=== PATIENT | female | born 1940 | race Caucasian/White ===

== ENCOUNTER 2022-08-17 18:50 | Inpatient (IN) | payer MEDICARE ==
[2022-08-17] MEDS ORDERED: NALOXONE 0.4 MG/ML 1 ML VIAL IV PRN (19:18)
--- NOTE | 2022-08-17 19:18 | ED ---
General Adult HPI - General Chief complaint: Shortness of Breath Stated complaint: PE Time Seen by Provider: 08/17/22 18:57 Source: patient Mode of arrival: ambulatory Limitations: no limitations - History of Present Illness Initial comments: This is an 81-year-old female who was brought in by EMS as a transfer patient from [facility]. The patient stated that she had increasing shortness of breath over the last 3 or so weeks but stated that it became worse today so she went to the ER. The patient stated that she was to receive her confusion at the hospital however and was noted to be extremely short of breath so the nurse at the infusion center told her to report to the emergency department for evaluation workup. At the outside facility, workup was obtained and did show bilateral PEs without any right heart strain. The patient stated that she continued to remain mildly short of breath however denied any acute distress or pain currently. The patient remained stable. Review of Systems ROS Statement: Those systems with pertinent positive or pertinent negative responses have been documented in the HPI. ROS Other: All systems not noted in ROS Statement are negative. Past Medical History Smoking Status: Never smoker Past Alcohol Use History: None Reported Past Drug Use History: None Reported General Exam Limitations: no limitations General appearance: alert, in no apparent distress Head exam: Present: atraumatic, normocephalic Eye exam: Present: normal appearance, PERRL Pupils: Present: normal accommodation ENT exam: Present: normal exam, normal oropharynx, mucous membranes moist Neck exam: Present: normal inspection, full ROM Respiratory exam: Present: normal lung sounds bilaterally Cardiovascular Exam: Present: regular rate, normal rhythm, normal heart sounds GI/Abdominal exam: Present: soft, normal bowel sounds Extremities exam: Present: normal inspection, full ROM Back exam: Present: normal inspection, full ROM Neurological exam: Present: alert, oriented X3, CN II-XII intact Psychiatric exam: Present: normal affect, normal mood Skin exam: Present: warm, dry Course Vital Signs 08/17/22 19:04 Temperature 98.3 F Pulse Rate 77 Respiratory 16 Rate Blood Pressure 154/67 O2 Sat by Pulse 97 Oximetry Medical Decision Making - Medical Decision Making The patient was seen and evaluated emergency department. Physical exam, the patient was resting in bed without any acute distress. Vital signs admission were stable and within normal limits. The patient was currently on IV heparin for her bilateral PEs that were diagnosed the outside facility. The full workup was performed at the outside facility so no further workup was obtained here in the emergency department. The patient's primary care physician does not admit to this hospital therefore the patient was covered by [facility] on . Joyce Tejeda was contacted at [phone] and did accept the patient for admission. The patient was accepted to Dr. Thakur the patient was told this plan and was agreeable. The patient remained stable and was admitted in stable condition.. Disposition Clinical Impression: Bilateral pulmonary embolism Disposition: ADMITTED IP TO THIS [facility] Condition: Stable Is patient prescribed a controlled substance at d/c from ED?: No Referrals: Hi Quezada MD [Primary Care Provider] - 1-2 days Time of Disposition: 19:05 Decision to Admit Reason: Admit from EC Decision Date: 08/17/22 Decision Time: 19:05
[2022-08-17] MEDS ORDERED: HEPARIN SODIUM 1,000 UN/ML (10ML VL) IV ONE (20:47)
[2022-08-17] MEDS ORDERED: HEPARIN SOD,PORK IN 0.45% NACL 25,000 UNIT in 0.45% NACL 1 250ML.BAG IV SCH (21:00)
[2022-08-17 21:48] LABS: Basophils % (A) 0 %; Eosinophils # (A) 0.1 k/uL (0-0.7); Eosinophils % (A) 2 %; HCT 37.3 % (34.0-46.0); HGB 12.1 gm/dL (11.4-16.0); Hypochromasia Slight; Lymphocytes # (A) 0.9 k/uL (1.0-4.8); Lymphocytes % (A) 16 %; MCH 31.3 pg (25.0-35.0); MCHC 32.4 g/dL (31.0-37.0); MCV 96.5 fL (80.0-100.0); Mean Platelet Volume 8.3; Monocytes # (A) 0.3 k/uL (0-1.0); Monocytes % (A) 6 %; Neutrophils # (A) 4.1 k/uL (1.3-7.7); Neutrophils % (A) 74 %; Platelet Count 203 k/uL (150-450); RBC 3.86 m/uL (3.80-5.40); RDW 14.2 % (11.5-15.5); WBC 5.5 k/uL (3.8-10.6)
[2022-08-17 21:53] LABS: INR 0.9 (<1.2); Partial Thromboplastin Time 36.7 sec (22.0-30.0); Prothrombin Time 9.7 sec (9.0-12.0)
[2022-08-18 04:49] LABS: Basophils % (A) 0 %; Eosinophils # (A) 0.1 k/uL (0-0.7); Eosinophils % (A) 2 %; HCT 35.4 % (34.0-46.0); HGB 11.7 gm/dL (11.4-16.0); Hypochromasia Slight; Lymphocytes # (A) 0.8 k/uL (1.0-4.8); Lymphocytes % (A) 19 %; MCH 32.1 pg (25.0-35.0); MCHC 33.1 g/dL (31.0-37.0); MCV 96.7 fL (80.0-100.0); Mean Platelet Volume 8.2; Monocytes # (A) 0.3 k/uL (0-1.0); Monocytes % (A) 7 %; Neutrophils % (A) 69 %; Platelet Count 180 k/uL (150-450); RBC 3.66 m/uL (3.80-5.40); RDW 14.2 % (11.5-15.5); WBC 4.3 k/uL (3.8-10.6)
[2022-08-18 05:05] LABS: INR 0.9 (<1.2); Partial Thromboplastin Time 25.4 sec (22.0-30.0); Prothrombin Time 9.8 sec (9.0-12.0)
[2022-08-18] MEDS: HEPARIN SODIUM 1,000 UN/ML (10ML VL) IV PRN ×2 (05:16→10:14)
[2022-08-18 06:03] LABS: Glucose,Whole Blood 243 mg/dL (70-110)
[2022-08-18] MEDS ORDERED: DEXTROSE 50% SYRINGE 50 ML IVP PRN ×2 (06:15)
[2022-08-18] MEDS: INSULIN ASPART (NovoLOG) 100 UNIT/ML VIAL SQ SCH ×4 (06:27→20:16)
[2022-08-18] MEDS ORDERED: traMADol 50 MG TAB PO PRN (09:24)
[2022-08-18] MEDS ORDERED: LOPERAMIDE 2 MG CAP PO PRN (09:24)
[2022-08-18] MEDS ORDERED: ACETAMINOPHEN TAB 325 MG TAB PO PRN (09:24)
[2022-08-18] MEDS: SPIRONOLACTONE 25 MG TAB PO SCH (10:09)
[2022-08-18] MEDS: FUROSEMIDE 40 MG TAB PO SCH (10:09)
[2022-08-18] MEDS: hydrALAZINE HCL 50 MG TAB PO SCH ×2 (10:09→20:16)
[2022-08-18 10:30] LABS: Calcium 8.2 mg/dL (8.4-10.2); Magnesium 1.8 mg/dL (1.6-2.3); Potassium 4.8 mmol/L (3.5-5.1)
[2022-08-18 11:55] LABS: Glucose,Whole Blood 203 mg/dL (70-110)
[2022-08-18] MEDS ORDERED: APIXABAN 5 MG TAB PO SCH (12:15)
[2022-08-18] MEDS ORDERED: HEPARIN SODIUM 1,000 UN/ML (10ML VL) IV PRN (13:20)
--- NOTE | 2022-08-18 13:24 | XR ---
EXAMINATION TYPE: XR chest 2V DATE OF EXAM: 08/18/2022 1:05 PM COMPARISON: None TECHNIQUE: XR chest 2V Frontal and lateral views of the chest. CLINICAL INDICATION:Female, 81 years old with history of hypoxia; FINDINGS: Lungs/Pleura: There is no evidence of pleural effusion, focal consolidation, or pneumothorax. Senesc ent parenchymal changes. Pulmonary vascularity: Unremarkable. Heart/mediastinum: Cardiomediastinal silhouette is unremarkable. Musculoskeletal: Multiple level degenerative disc disease changes seen throughout the spine. IMPRESSION: No acute cardiopulmonary disease/process.
--- NOTE | 2022-08-18 14:03 | P.HPIM ---
History of Present Illness H&P Date: 08/18/22 This is an 81 year old female, history of diabetes mellitus, hypertension, gout. She is maintained on Krystexxa infusions states she was going to the hospital for her 9th infusion out of a 6 month course of therapy. She has reported chronic aches and pains since being started on infusions although her joint pain and swelling has improved. She states she has had ongoing issues with shortness of breath for the last 6 months and when she came in for her infusion she underwent work up for the shortness of breath at [facility]. CT angiography of the chest was performed showing Bilateral lobar segmental and subsegmental pulmonary emboli and large clot burden and RV/LV ratio is 1. The ma in pulmonary artery is abnormally dilated. Bilateral tree in bud opacities right greater than left likely due to an atypical pneumonia. She was found to have bilateral pulmonary embolism transferred to this facility for further evaluation of right heart strain. She reports no increase in leg swelling, denies lower extremity pain, no pain with ambulation. She denies prior history of blood clots, no personal or family history of clotting disorders. Denies personal history of cancer, there is family history of pancreatic cancer and some type of abdominal/bowel cancer. She does not wear oxygen at home and she is a non smoker. Denies history of heart disease or heart failure. Denies recent illness, has not been infected with covid previously. Up to date on vaccinations, records show patient had influenza vaccine this year, and moderna booster in April of this year. Patient was admitted to the hospital and started on IV heparin. Vascular services has been consulted, an echocardiogram and troponin have been ordered. Currently requiring 2L of oxygen via nasal cannula. REVIEW OF SYSTEMS: CONSTITUTIONAL: No fever, no malaise, no fatigue. HEENT: No recent visual problems or hearing problems. Denied any sore throat. CARDIOVASCULAR: No chest pain, orthopnea, PND, no palpitations, no syncope. PULMONARY: Reports shortness of breath worse with ambulation, no cough, no hemoptysis. GASTROINTESTINAL: No diarrhea, no nausea, no vomiting, no abdominal pain. NEUROLOGICAL: No headaches, no weakness, no numbness. HEMATOLOGICAL: Denies any bleeding or petechiae. GENITOURINARY: Denies any burning micturition, frequency, or urgency. MUSCULOSKELETAL/RHEUMATOLOGICAL: Denies any joint pain, swelling, or any muscle pain. ENDOCRINE: Denies any polyuria or polydipsia. The rest of the 14-point review of systems is negative. PHYSICAL EXAMINATION: GENERAL: The patient is alert and oriented x3, not in any acute distress. Well developed, well nourished. Appears fatigued on 2L nasal cannula. HEENT: Pupils are round and equally reacting to light. EOMI. No scleral icterus. No conjunctival pallor. Normocephalic, atraumatic. No pharyngeal erythema. No thyromegaly. CARDIOVASCULAR: S1 and S2 present. No murmurs, rubs, or gallops. PULMONARY: Chest is clear to auscultation, no wheezing or crackles. ABDOMEN: Soft, nontender, nondistended, normoactive bowel sounds. No palpable organomegaly. MUSCULOSKELETAL: No joint swelling or deformity. EXTREMITIES: No cyanosis, clubbing, or pedal edema. NEUROLOGICAL: Gross neurological examination did not reveal any focal deficits. SKIN: No rashes. Assessment and plan Assessment Acute bilateral lobar, sugmental and subsegmental pulmonary embolism. There is evidence of large clot burden and dilated main pulmonary artery found on CTA from [place]. Continues on IV heparin. Bilateral tree in bud opacities right greater than left possibly from an atypical pneumonia found on chest CT angiography. Hypertension Diabetes mellitus with hyperglycemia History of gout on Krystexxa infusions Never smoker Obesity GI prophylaxis DVT prophylaxis on IV heparin, high intensity Full Code Plan Continue IV heparin Vascular services has been consulted with further evaluation Echocardiogram ordered, and troponin ordered Venous doppler ordered Further recommendings pending Continue on oxygen support Repeat labs in AM The impression and plan of care has been dictated by Jaci Geronimo Nurse Practitioner as directed. Dr. Ofe MD I have performed a history and physical examination and medical decision making of this patient, discussed the same with the dictator, and agree with the dictators assessment and plan as written, documented as a scribe. Based on total visit time, I have performed more than 50% of this visit. Past Medical History Past Medical History: Diabetes Mellitus, Hypertension Additional Past Medical History / Comment(s): Gout: receiving Krystexxa Infusions q14 days History of Any Multi-Drug Resistant Organisms: None Reported Past Surgical History: Cholecystectomy, Hysterectomy, Orthopedic Surgery Additional Past Surgical History / Comment(s): surgery on foot "years ago" Past Anesthesia/Blood Transfusion Reactions: No Reported Reaction Additional Past Anesthesia/Blood Transfusion Reaction / Comment(s): never received blood tranfusion Past Psychological History: No Psychological Hx Reported Smoking Status: Never smoker Past Alcohol Use History: None Reported Past Drug Use History: None Reported - Past Family History Mother Family Medical History: Cancer Additional Family Medical History / Comment(s): pancreatic cancer Son(s) Family Medical History: Cancer Additional Family Medical History / Comment(s): brain cancer Medications and Allergies Home Medications Medication Instructions Recorded Confirmed Type Acetaminophen [Tylenol 8 Hour] 650 mg PO Q8H PRN 08/17/22 08/17/22 History Colchicine [Mitigare] 0.6 mg PO DAILY 08/17/22 08/17/22 History Cyanocobalamin (Vitamin B-12) 1,000 mcg PO DAILY 08/17/22 08/17/22 History [Vitamin B-12] Diclofenac Sodium Gel [Voltaren 2 - 4 gm TOPICAL QID PRN 08/17/22 08/17/22 History Gel] Folic Acid 1 mg PO DAILY 08/17/22 08/17/22 History Furosemide [Lasix] 40 mg PO DAILY 08/17/22 08/17/22 History Krystexxa Infusion 1 dose IV Q14D 08/17/22 08/17/22 History Levothyroxine Sodium [Synthroid] 50 mcg PO DAILY 08/17/22 08/17/22 History Loperamide HCl [Imodium A-D] 2 mg PO QID PRN 08/17/22 08/17/22 History Magnesium Oxide [Mag-Ox] 250 mg PO BID 08/17/22 08/17/22 History Metoprolol Tartrate [Lopressor] 50 mg PO BID 08/17/22 08/17/22 History Potassium Chloride [Klor-Con M20] 20 meq PO DAILY 08/17/22 08/17/22 History Spironolactone [Aldactone] 25 mg PO DAILY 08/17/22 08/17/22 History diphenhydrAMINE [Benadryl] 25 mg PO PEÑA@2100 08/17/22 08/17/22 History glipiZIDE [Glucotrol] 20 mg PO BID 08/17/22 08/17/22 History hydrALAZINE HCL [Apresoline] 50 mg PO BID 08/17/22 08/17/22 History metFORMIN HCL 1,000 mg PO BID 08/17/22 08/17/22 History metHOTREXate sodium [Methotrexate] 15 mg PO PEÑA 08/17/22 08/17/22 History traMADol HCL 50 mg PO Q6H PRN 08/17/22 08/17/22 History Allergies Allergy/AdvReac Type Severity Reaction Status Date / Time papaya Allergy Anaphylaxis Verified 08/17/22 20:48 allopurinol AdvReac Vomiting Verified 08/17/22 20:49 amoxicillin AdvReac Rash/Hives Verified 08/17/22 20:47 aspirin AdvReac Vomiting Verified 08/17/22 20:49 shellfish derived [Shellfish] AdvReac Rash/Hives Verified 08/17/22 20:48 Physical Exam Vitals: Vital Signs Temp Pulse Pulse Resp BP BP Pulse Ox 08/18/22 08:39 98.6 F 89 23 140/52 95 08/18/22 03:03 98.3 F 79 16 158/74 93 L 08/17/22 23:10 98.0 F 76 20 164/74 95 08/17/22 22:24 97.9 F 79 20 163/74 95 08/17/22 19:04 98.3 F 77 16 154/67 97 Intake and Output 08/17/22 08/18/22 08/18/22 22:59 06:59 14:59 Intake Total 76.833 180 Balance 76.833 180 Intake: Intake, IV Titration 76.833 Amount Heparin Sod,Pork in 0.45% 76.833 NaCl 25,000 unit In 0.45 % NaCl 1 250ml.bag @ 8. 415 UNITS/KG/HR 10 mls/hr IV .Q24H [facility] Rx#: [id number] Oral 180 Other: Voiding Method Bedpan Bedpan # Voids 1 1 Weight 118.841 kg Results CBC & Chem 7: 08/18/22 04:19 08/18/22 04:19 Labs: Abnormal Lab Results - Last 24 Hours (Table) 08/17/22 08/17/22 08/18/22 Range/Units 21:22 21:22 04:19 RBC 3.66 L (3.80-5.40) m/uL Lymphocytes # 0.9 L 0.8 L (1.0-4.8) k/uL APTT 36.7 H (22.0-30.0) sec POC Glucose (mg/dL) (70-110) mg/dL 08/18/22 Range/Units 06:02 RBC (3.80-5.40) m/uL Lymphocytes # (1.0-4.8) k/uL APTT (22.0-30.0) sec POC Glucose (mg/dL) 243 H (70-110) mg/dL Thrombosis Risk Factor Assmnt - Choose All That Apply Each Factor Represents 1 point: Medical pt on bed rest Each Risk Factor Represents 3 Points: Age 75 years or older Thrombosis Risk Factor Assessment Total Risk Factor Score: 4 Thrombosis Risk Factor Assessment Level: Moderate Risk Assessment and Plan Time with Patient: Greater than 30
--- NOTE | 2022-08-18 14:25 | P.GSCN ---
History of Present Illness Consult date: 08/18/22 Reason for Consult: Bilateral PE, large clot burden Requesting physician: Jaci Geronimo History of present illness: This is a pleasant 81-year-old female with a past medical history including diabetes mellitus, hypertension, gout on Krystexxa infusions, and obesity who had initially presented to [facility] with complaints of shortness of breath and was found to have bilateral pulmonary embolism with large clot burden who was transferred to this hospital for further evaluation. Patient had been started on a heparin drip and currently remains on 1. She states that she's had shortness of breath for the last 6 weeks duration and has progressively gotten worse. She denies any previous history of DVTs, pulmonary embolism or clotting disorders. She denies any recent surgery, travel, but does state she's been a little more sedentary due to the shortness of breath over last 6 weeks. No recent known [place], however to get her Covid booster 2 months ago. States her last colonoscopy was greater than 10 years ago. She denies any pain in her legs or abnormal swelling. She states her left lower extremity always swells and she is currently on Lasix. She denies any smoking history. She currently denies any chest pain but continues to have shortness of breath especially with exertion and even with talking. She is on 2 L nasal cannula saturation is 92- 95%. Chest CTA with contrast reported bilateral lobar, segmental and subsegmental pulmonary emboli. Large clot burden. RV/LV ratio is approximately 1. Bilateral tree in bud opacities, right greater than left are likely due to atypical pneumonia. Follow-up chest CT recommended in 3 months to ensure complete clearing. Review of Systems A 14 point review systems was completed all pertinent positives and negatives as stated in the HPI. Past Medical History Past Medical History: Diabetes Mellitus, Hypertension Additional Past Medical History / Comment(s): Gout: receiving Krystexxa Infusions q14 days History of Any Multi-Drug Resistant Organisms: None Reported Past Surgical History: Cholecystectomy, Hysterectomy, Orthopedic Surgery Additional Past Surgical History / Comment(s): surgery on foot "years ago" Past Anesthesia/Blood Transfusion Reactions: No Reported Reaction Additional Past Anesthesia/Blood Transfusion Reaction / Comm: never received blood tranfusion Past Psychological History: No Psychological Hx Reported Smoking Status: Never smoker Past Alcohol Use History: None Reported Past Drug Use History: None Reported - Past Family History Mother Family Medical History: Cancer Additional Family Medical History / Comment(s): pancreatic cancer Son(s) Family Medical History: Cancer Additional Family Medical History / Comment(s): brain cancer Medications and Allergies Home Medications Medication Instructions Recorded Confirmed Type Acetaminophen [Tylenol 8 Hour] 650 mg PO Q8H PRN 08/17/22 08/17/22 History Colchicine [Mitigare] 0.6 mg PO DAILY 08/17/22 08/17/22 History Cyanocobalamin (Vitamin B-12) 1,000 mcg PO DAILY 08/17/22 08/17/22 History [Vitamin B-12] Diclofenac Sodium Gel [Voltaren 2 - 4 gm TOPICAL QID PRN 08/17/22 08/17/22 History Gel] Folic Acid 1 mg PO DAILY 08/17/22 08/17/22 History Furosemide [Lasix] 40 mg PO DAILY 08/17/22 08/17/22 History Krystexxa Infusion 1 dose IV Q14D 08/17/22 08/17/22 History Levothyroxine Sodium [Synthroid] 50 mcg PO DAILY 08/17/22 08/17/22 History Loperamide HCl [Imodium A-D] 2 mg PO QID PRN 08/17/22 08/17/22 History Magnesium Oxide [Mag-Ox] 250 mg PO BID 08/17/22 08/17/22 History Metoprolol Tartrate [Lopressor] 50 mg PO BID 08/17/22 08/17/22 History Potassium Chloride [Klor-Con M20] 20 meq PO DAILY 08/17/22 08/17/22 History Spironolactone [Aldactone] 25 mg PO DAILY 08/17/22 08/17/22 History diphenhydrAMINE [Benadryl] 25 mg PO PEÑA@2100 08/17/22 08/17/22 History glipiZIDE [Glucotrol] 20 mg PO BID 08/17/22 08/17/22 History hydrALAZINE HCL [Apresoline] 50 mg PO BID 08/17/22 08/17/22 History metFORMIN HCL 1,000 mg PO BID 08/17/22 08/17/22 History metHOTREXate sodium [Methotrexate] 15 mg PO PEÑA 08/17/22 08/17/22 History traMADol HCL 50 mg PO Q6H PRN 08/17/22 08/17/22 History Allergies Allergy/AdvReac Type Severity Reaction Status Date / Time papaya Allergy Anaphylaxis Verified 08/17/22 20:48 allopurinol AdvReac Vomiting Verified 08/17/22 20:49 amoxicillin AdvReac Rash/Hives Verified 08/17/22 20:47 aspirin AdvReac Vomiting Verified 08/17/22 20:49 shellfish derived [Shellfish] AdvReac Rash/Hives Verified 08/17/22 20:48 Surgical - Exam Vital Signs Temp Pulse Resp BP Pulse Ox 98.3 F 77 16 154/67 97 08/17/22 19:04 08/17/22 19:04 08/17/22 19:04 08/17/22 19:04 08/17/22 19:04 General appearance: The patient is alert, oriented, appears in no acute distress. Obese. HET: Head is normocephalic and atraumatic. Pupils are equal and reactive. Neck: Supple without lymphadenopathy. Trachea midline. No audible carotid bruit. Heart: Regular. Lungs: Equal expansion, normal respiratory effort. Patient does seem winded with talking. Abdomen: Soft, nontender, nondistended. Extremities: Normal skin color and turgor. Bilateral lower extremity edema, nonpitting. Neurological: No focal deficits. Alert and oriented 3. Results - Labs 08/18/22 04:19 08/18/22 04:19 Abnormal Lab Results - Last 24 Hours (Table) 08/17/22 08/17/22 08/18/22 Range/Units 21:22 21:22 04:19 RBC 3.66 L (3.80-5.40) m/uL Lymphocytes # 0.9 L 0.8 L (1.0-4.8) k/uL APTT 36.7 H (22.0-30.0) sec Sodium (137-145) mmol/L Chloride (98-107) mmol/L BUN (7-17) mg/dL Creatinine (0.52-1.04) mg/dL Glucose (74-99) mg/dL POC Glucose (mg/dL) (70-110) mg/dL Calcium (8.4-10.2) mg/dL 08/18/22 08/18/22 08/18/22 Range/Units 04:19 06:02 08:11 RBC (3.80-5.40) m/uL Lymphocytes # (1.0-4.8) k/uL APTT 32.9 H (22.0-30.0) sec Sodium 136 L (137-145) mmol/L Chloride 108 H (98-107) mmol/L BUN 34 H (7-17) mg/dL Creatinine 1.16 H (0.52-1.04) mg/dL Glucose 231 H (74-99) mg/dL POC Glucose (mg/dL) 243 H (70-110) mg/dL Calcium 8.2 L (8.4-10.2) mg/dL 08/18/22 Range/Units 11:53 RBC (3.80-5.40) m/uL Lymphocytes # (1.0-4.8) k/uL APTT (22.0-30.0) sec Sodium (137-145) mmol/L Chloride (98-107) mmol/L BUN (7-17) mg/dL Creatinine (0.52-1.04) mg/dL Glucose (74-99) mg/dL POC Glucose (mg/dL) 203 H (70-110) mg/dL Calcium (8.4-10.2) mg/dL Diabetes panel 08/18/22 Range/Units 04:19 Sodium 136 L (137-145) mmol/L Potassium 4.8 (3.5-5.1) mmol/L Chloride 108 H (98-107) mmol/L Carbon Dioxide 22 (22-30) mmol/L BUN 34 H (7-17) mg/dL Creatinine 1.16 H (0.52-1.04) mg/dL Glucose 231 H (74-99) mg/dL Calcium 8.2 L (8.4-10.2) mg/dL Calcium panel 08/18/22 Range/Units 04:19 Calcium 8.2 L (8.4-10.2) mg/dL Pituitary panel 08/18/22 Range/Units 04:19 Sodium 136 L (137-145) mmol/L Potassium 4.8 (3.5-5.1) mmol/L Chloride 108 H (98-107) mmol/L Carbon Dioxide 22 (22-30) mmol/L BUN 34 H (7-17) mg/dL Creatinine 1.16 H (0.52-1.04) mg/dL Glucose 231 H (74-99) mg/dL Calcium 8.2 L (8.4-10.2) mg/dL Adrenal panel 08/18/22 Range/Units 04:19 Sodium 136 L (137-145) mmol/L Potassium 4.8 (3.5-5.1) mmol/L Chloride 108 H (98-107) mmol/L Carbon Dioxide 22 (22-30) mmol/L BUN 34 H (7-17) mg/dL Creatinine 1.16 H (0.52-1.04) mg/dL Glucose 231 H (74-99) mg/dL Calcium 8.2 L (8.4-10.2) mg/dL Assessment and Plan Assessment: 1. Bilateral pulmonary emboli, with reported large clot burden from CTA done at outside facility 2. Possible right heart strain, await echocardiogram results 3. History of hypertension 4. Obesity 5. Recent COVID-19 booster, 2 months ago Plan: 1. Continue heparin drip 2. Await echocardiogram results 3. Agree with the venous duplex of lower extremities, results pending 4. Incentive spirometer to bedside 5. Troponin ordered Further recommendations forthcoming per vascular surgery The impression and plan of care has been dictated as directed. I performed a history and examination of this patient, discussed the same with the dictator. I agree with the dictator's note ,documented as a scribe. Any additional findings or plans will be noted.
--- NOTE | 2022-08-18 14:34 | US ---
EXAMINATION TYPE: US venous doppler duplex LE BI DATE OF EXAM: 08/18/2022 2:29 PM COMPARISON: NONE CLINICAL HISTORY: acute PE, rule out DVT. PE, SOB, R/O DVT SIDE PERFORMED: Bilateral TECHNIQUE: The lower extremity deep venous system is examined utilizing real time linear array sonog mukund with graded compression, doppler sonography and color-flow sonography. VESSELS IMAGED: Common Femoral Vein Deep Femoral Vein Greater Saphenous Vein * Femoral Vein Popliteal Vein Small Saphenous Vein * Proximal Calf Veins (* superficial vessels) Grayscale, color doppler, spectral doppler imaging performed of the deep veins of the lower extremiti es. There is normal flow, compressibility, vascular waveforms. Right Leg: Negative for DVT Left Leg: Negative for DVT IMPRESSION: No ultrasound evidence for deep venous thrombosis of the bilateral lower extremities.
[2022-08-18] MEDS: HEPARIN SOD,PORK IN 0.45% NACL 25,000 UNIT in 0.45% NACL 1 250ML.BAG IV SCH ×2 (15:23→20:21)
[2022-08-18 16:57] LABS: Glucose,Whole Blood 262 mg/dL (70-110)
[2022-08-18] MEDS: glipiZIDE 10 MG TAB PO SCH (19:37)
[2022-08-18] MEDS: metFORMIN 500 MG TAB PO SCH (19:37)
[2022-08-18 19:47] LABS: Glucose,Whole Blood 261 mg/dL (70-110)
[2022-08-18] MEDS: METOPROLOL TARTRATE 50 MG TAB PO SCH (20:16)
[2022-08-19 06:09] LABS: Glucose,Whole Blood 139 mg/dL (70-110)
[2022-08-19] MEDS: INSULIN ASPART (NovoLOG) 100 UNIT/ML VIAL SQ SCH ×5 (06:17→20:36)
[2022-08-19] MEDS: metFORMIN 500 MG TAB PO SCH (06:41)
[2022-08-19] MEDS: LEVOTHYROXINE 50 MCG TAB PO SCH (06:41)
[2022-08-19] MEDS: glipiZIDE 10 MG TAB PO SCH ×2 (06:42→17:12)
[2022-08-19] MEDS: HEPARIN SOD,PORK IN 0.45% NACL 25,000 UNIT in 0.45% NACL 1 250ML.BAG IV SCH (06:45)
[2022-08-19] MEDS ORDERED: CYANOCOBALAMIN 500 MCG TAB PO SCH (09:00)
[2022-08-19] MEDS: SPIRONOLACTONE 25 MG TAB PO SCH (09:34)
[2022-08-19] MEDS: FOLIC ACID 1 MG TAB PO SCH (09:34)
[2022-08-19] MEDS: hydrALAZINE HCL 50 MG TAB PO SCH ×2 (09:34→20:35)
[2022-08-19] MEDS: FUROSEMIDE 40 MG TAB PO SCH (09:34)
[2022-08-19] MEDS: METOPROLOL TARTRATE 50 MG TAB PO SCH ×2 (09:34→20:35)
[2022-08-19 09:52] LABS: Calcium 8.3 mg/dL (8.4-10.2); Potassium 4.2 mmol/L (3.5-5.1)
--- NOTE | 2022-08-19 10:05 | P.PN ---
Subjective Progress Note Date: 08/19/22 Principal diagnosis: Bilateral pulmonary embolism Patient was seen and examined today for follow-up for bilateral pulmonary embolism with large burden. According to the CT angiogram done at [facility] there was possibility of right heart strain. Patient underwent echocardiogram yesterday afternoon and awaiting report at this time. She also had a venous duplex of bilateral lower extremities which was negative for DVT. She states today she is feeling better, she denies any chest pain. She states breathing is improving with exertion and talking. She is still wearing 2 L of nasal cannula with oxygen saturation 95-96%. Repeat troponin was negative. Objective - Vital Signs Vital signs: Vital Signs Temp 97.7 F 08/19/22 03:34 Pulse 69 08/19/22 03:34 Resp 22 08/19/22 03:34 BP 154/70 08/19/22 03:34 Pulse Ox 96 08/19/22 03:34 FiO2 Intake & Output 08/18/22 08/19/22 08/19/22 18:59 06:59 18:59 Intake Total 429.413 568.708 Balance 429.413 568.708 Intake: Intake, IV Titration 69.413 328.708 Amount Heparin Sod,Pork in 0.45% 328.708 NaCl 25,000 unit In 0.45 % NaCl 1 250ml.bag @ 18 UNITS/KG/HR 21.391 mls/hr IV .[id number] [facility] Rx#: [id number] Heparin Sod,Pork in 0.45% 69.413 NaCl 25,000 unit In 0.45 % NaCl 1 250ml.bag @ 8. 415 UNITS/KG/HR 10 mls/hr IV .Q24H [facility] Rx#: [id number] Oral 360 240 Other: Voiding Method Bedpan Toilet # Voids 1 1 - Exam General appearance: The patient is alert, oriented, appears in no acute distress. HET: Head is normocephalic and atraumatic. Pupils are equal and reactive. Neck: Supple without lymphadenopathy. Trachea midline. Obese. Heart: Regular. Lungs: Equal expansion, normal respiratory effort. Abdomen: Soft, nontender, nondistended. Extremities: Normal skin color and turgor. No cyanosis, rash, ulceration, clubbing, or edema. Radial and pedal pulses are 2/4 bilaterally. Neurological: No focal deficits. Alert and oriented 3. - Labs CBC & Chem 7: 08/18/22 04:19 08/19/22 07:35 Labs: Abnormal Lab Results - Last 24 Hours (Table) 08/18/22 08/18/22 08/18/22 Range/Units 04:19 08:11 11:53 APTT 32.9 H (22.0-30.0) sec Sodium 136 L (137-145) mmol/L Chloride 108 H (98-107) mmol/L BUN 34 H (7-17) mg/dL Creatinine 1.16 H (0.52-1.04) mg/dL Glucose 231 H (74-99) mg/dL POC Glucose (mg/dL) 203 H (70-110) mg/dL Calcium 8.2 L (8.4-10.2) mg/dL 08/18/22 08/18/22 08/18/22 Range/Units 16:25 16:56 19:46 APTT 34.3 H (22.0-30.0) sec Sodium (137-145) mmol/L Chloride (98-107) mmol/L BUN (7-17) mg/dL Creatinine (0.52-1.04) mg/dL Glucose (74-99) mg/dL POC Glucose (mg/dL) 262 H 261 H (70-110) mg/dL Calcium (8.4-10.2) mg/dL 08/19/22 08/19/22 08/19/22 Range/Units 02:05 06:07 07:35 APTT 46.0 H 57.9 H (22.0-30.0) sec Sodium (137-145) mmol/L Chloride (98-107) mmol/L BUN (7-17) mg/dL Creatinine (0.52-1.04) mg/dL Glucose (74-99) mg/dL POC Glucose (mg/dL) 139 H (70-110) mg/dL Calcium (8.4-10.2) mg/dL Assessment and Plan Assessment: 1. Bilateral pulmonary emboli, with no evidence of right heart strain per echocardiogram 2. History of hypertension 3. Obesity 4. Recent COVID-19 booster, 2 months ago Plan: 1. Discontinue heparin drip and start oral anticoagulation 2. Echocardiogram results reviewed with Dr. Jackson who reported no right heart strain 3. Venous duplex bilateral lower extremities negative for DVT 4. Incentive spirometer to bedside 5. Encourage ambulation 6. Recommend outpatient colonoscopy 7. Recommend follow-up with senior consultant in 1-2 weeks Further recommendations forthcoming per vascular surgery The impression and plan of care has been dictated as directed. Dr. Hagen I performed a history and examination of this patient, discussed the same with the dictator. I agree with the dictator's note ,documented as a scribe. Any additional findings or plans will be noted.
--- NOTE | 2022-08-19 11:32 | CA ---
Transthoracic Echo Report Name: Denise Burciaga Age: 81 Gender: F : 1940 Exam Date: 08/18/2022 13:36 Exam Location: [facility] Ht (in): 67 Wt (lb): 262 Ordering Physician: Jaci Geronimo Attending/Referring Phys: Juanpablo LAROSE Lehr Stripper Ilana Morfin, TOÑA Procedure CPT: Indications: bilateral PE with large clot burden Cardiac Hx: Technical Quality: Technically difficult study Contrast 1: Lumason Total Dose (mL): 5 Contrast 2: Total Dose (mL): MEASUREMENTS (Male / Female) Normal Values 2D ECHO LV Diastolic Diameter PLAX 3.7 cm 4.2 - 5.9 / 3.9 - 5.3 cm LV Systolic Diameter PLAX 2.6 cm IVS Diastolic Thickness 1.7 cm 0.6 - 1.0 / 0.6 - 0.9 cm LVPW Diastolic Thickness 1.4 cm 0.6 - 1.0 / 0.6 - 0.9 cm LV Relative Wall Thickness 0.8 RV Internal Dim ED PLAX 3.9 cm DOPPLER AV Peak Velocity 192.3 cm/s AV Peak Gradient 14.8 mmHg LVOT Peak Velocity 114.8 cm/s LVOT Peak Gradient 5.3 mmHg MV Area PHT 3.5 cm??? Mitral E Point Velocity 76.1 cm/s Mitral A Point Velocity 125.1 cm/s Mitral E to A Ratio 0.6 MV Deceleration Time 218.8 ms TR Peak Velocity 245.5 cm/s TR Peak Gradient 24.1 mmHg Right Ventricular Systolic Press 28.4 mmHg FINDINGS Left Ventricle Moderately increased left ventricular wall thickness. Normal left ventricular systolic function with no obvious regional wall motion abnormalities. Left ventricular ejection fraction is estimated at 55-60 %. Right Ventricle Moderate right ventricular dilatation. No right heart strain noted, TAPSE is 20mm and RV' is 15 cm/sec Right Atrium Normal right atrial size. Mild right atrial dilatation. Left Atrium Normal left atrial size. Mitral Valve Structurally normal mitral valve. No mitral stenosis. No evidence for mitral valve prolapse. Mild mitral regurgitation. Aortic Valve Trileaflet aortic valve. No aortic valve stenosis or regurgitation. Tricuspid Valve Structurally normal tricuspid valve. Mild tricuspid regurgitation. Pulmonic Valve Structurally normal pulmonic valve. Trace pulmonic regurgitation. Pericardium No pericardial effusion. Aorta Normal size aortic root and proximal ascending aorta. CONCLUSIONS Normal left ventricular dimension and systolic function. EF 55-60% Mildly dilated right ventricle with normal function. No evidence of right ventricular strain noted. Normal pulmonary artery systolic pressure. RVSP is 24 mmHg Overall normal intracardiac valves Previewed by: Dr. Stas Jackson MD (Electronically Signed) Final Date: 19 August 2022 08:13
[2022-08-19 11:49] LABS: Glucose,Whole Blood 374 mg/dL (70-110)
[2022-08-19] MEDS: APIXABAN 5 MG TAB PO SCH ×2 (11:53→20:35)
[2022-08-19] MEDS: SODIUM CHLORIDE 0.9% 1,000 ML IV SCH (14:39)
--- NOTE | 2022-08-19 14:57 | P.PN ---
Subjective Progress Note Date: 08/19/22 This is an 81 year old female, history of diabetes mellitus, hypertension, gout. She is maintained on Krystexxa infusions states she was going to the hospital for her 9th infusion out of a 6 month course of therapy. She has reported chronic aches and pains since being started on infusions although her joint pain and swelling has improved. She states she has had ongoing issues with shortness of breath for the last 6 months and when she came in for her infusion she underwent work up for the shortness of breath at [facility]. CT angiography of the chest was performed showing Bilateral lobar segmental and subsegmental pulmonary emboli and large clot burden and RV/LV ratio is 1. The main pulmonary artery is abnormally dilated. Bilateral tree in bud opacities right greater than left likely due to an atypical pneumonia. She was found to have bilateral pulmonary embolism transferred to this facility for further evaluation of right heart strain. She reports no increase in leg swelling, den ies lower extremity pain, no pain with ambulation. She denies prior history of blood clots, no personal or family history of clotting disorders. Denies personal history of cancer, there is family history of pancreatic cancer and some type of abdominal/bowel cancer. She does not wear oxygen at home and she is a non smoker. Denies history of heart disease or heart failure. Denies recent illness, has not been infected with covid previously. Up to date on vaccinations, records show patient had influenza vaccine this year, and moderna booster in April of this year. Patient was admitted to the hospital and started on IV heparin. Vascular services has been consulted, an echocardiogram and troponin have been ordered. Currently requiring 2L of oxygen via nasal cannula. 08/19/2022 Patient continues to be monitored on the medical floor. She continues to report some shortness of breath with activity, requiring 2 L of nasal cannula. She is desaturating to the mid 80s on room air. Venous Doppler was negative for bilateral DVT. Echocardiogram has been completed showing ejection fraction of 55-60%, mild tricuspid and mild mitral regurgitation. There is a mildly dilated right ventricle with normal function. There is no evidence of right ventricular strain noted. There is normal pulmonary artery systolic pressure RVSP is 24 mmHg. Vascular surgery is recommended no intervention at this time, patient will be started on eliquis. Require close follow-up and echocardiogram outpatient. Review of Systems Constitutional: Denied any fatigue denied any fever. Cardio vascular: denied any chest pain, palpitations Gastrointestinal: denied any nausea, vomiting, diarrhea Pulmonary: Reports shortness of breath with ambulation, cough Neurologic denied any new focal deficits All inpatient medications were reviewed and appropriate changes in these medications as dictated in the interval history and assessment and plan. PHYSICAL EXAMINATION: GENERAL: The patient is alert and oriented x3, not in any acute distress. Well developed, well nourished. Appears fatigued on 2L nasal cannula. Obesity. HEENT: Pupils are round and equally reacting to light. EOMI. No scleral icterus. No conjunctival pallor. Normocephalic, atraumatic. No pharyngeal erythema. No thyromegaly. CARDIOVASCULAR: S1 and S2 present. No murmurs, rubs, or gallops. PULMONARY: Chest is clear to auscultation, no wheezing or crackles. Diminished Bases ABDOMEN: Soft, nontender, nondistended, normoactive bowel sounds. No palpable organomegaly. MUSCULOSKELETAL: No joint swelling or deformity. EXTREMITIES: No cyanosis, clubbing, or pedal edema. NEUROLOGICAL: Gross neurological examination did not reveal any focal deficits. SKIN: No rashes. Assessment and plan Assessment Acute bilateral lobar, sugmental and subsegmental pulmonary embolism. There is evidence of large clot burden and dilated main pulmonary artery found on CTA from [place]. Echo shows no evidence of right heart strain. Bilateral tree in bud opacities right greater than left possibly from an atypical pneumonia found on chest CT angiography. Follow up chest xray is negative acute cardiopulmonary disease. Acute hypoxic respiratory failure requiring oxygen via nasal cannula, 88% on room air today continues to require 2L nasal cannula Acute kidney injury mostly prerenal, diurectics and metformin will be held at this time History hypothyroidism Peripheral neuropathy Hypertension Diabetes mellitus with hyperglycemia History of gout on Krystexxa infusions Never smoker Obesity GI prophylaxis DVT prophylaxis on IV heparin, high intensity Full Code Plan Hold diuretics and metformin Gently hydrate Patient has been transitioned to eliquis Recommend to encourage ambulation continue on oxygen and titrate as needed. Possible discharge home with home oxygen in the AM. Discussed routine health screenings Close outpatient follow up with with cardiology and vascular services. Repeat labs in AM The impression and plan of care has been dictated by Jaci Geronimo, Nurse Practitioner as directed. Dr. Ofe MD I have performed a history and physical examination and medical decision making of this patient, discussed the same with the dictator, and agree with the dictators assessment and plan as written, documented as a scribe. Based on total visit time, I have performed more than 50% of this visit. Objective - Vital Signs Vital signs: Vital Signs Temp 98.1 F 08/19/22 09:32 Pulse 68 08/19/22 11:55 Resp 22 08/19/22 11:55 BP 176/70 08/19/22 11:55 Pulse Ox 88 L 08/19/22 11:55 FiO2 Intake & Output 08/18/22 08/19/22 08/19/22 18:59 06:59 18:59 Intake Total 429.413 568.708 180 Balance 429.413 568.708 180 Intake: Intake, IV Titration 69.413 328.708 Amount Heparin Sod,Pork in 0.45% 328.708 NaCl 25,000 unit In 0.45 % NaCl 1 250ml.bag @ 18 UNITS/KG/HR 21.391 mls/hr IV .[id number] [facility] Rx#: [id number] Heparin Sod,Pork in 0.45% 69.413 NaCl 25,000 unit In 0.45 % NaCl 1 250ml.bag @ 8. 415 UNITS/KG/HR 10 mls/hr IV .Q24H [facility] Rx#: [id number] Oral 360 240 180 Other: Voiding Method Bedpan Toilet # Voids 1 1 1 - Labs CBC & Chem 7: 08/18/22 04:19 08/19/22 07:35 Labs: Abnormal Lab Results - Last 24 Hours (Table) 08/18/22 08/18/22 08/18/22 Range/Units 16:25 16:56 19:46 APTT 34.3 H (22.0-30.0) sec BUN (7-17) mg/dL Creatinine (0.52-1.04) mg/dL Glucose (74-99) mg/dL POC Glucose (mg/dL) 262 H 261 H (70-110) mg/dL Calcium (8.4-10.2) mg/dL 08/19/22 08/19/22 08/19/22 Range/Units 02:05 06:07 07:35 APTT 46.0 H 57.9 H (22.0-30.0) sec BUN (7-17) mg/dL Creatinine (0.52-1.04) mg/dL Glucose (74-99) mg/dL POC Glucose (mg/dL) 139 H (70-110) mg/dL Calcium (8.4-10.2) mg/dL 08/19/22 08/19/22 Range/Units 07:35 11:48 APTT (22.0-30.0) sec BUN 34 H (7-17) mg/dL Creatinine 1.34 H (0.52-1.04) mg/dL Glucose 174 H (74-99) mg/dL POC Glucose (mg/dL) 374 H (70-110) mg/dL Calcium 8.3 L (8.4-10.2) mg/dL Assessment and Plan Time with Patient: Less than 30
[2022-08-19 17:03] LABS: Glucose,Whole Blood 118 mg/dL (70-110)
[2022-08-19 20:10] LABS: Glucose,Whole Blood 153 mg/dL (70-110)
[2022-08-19] MEDS ORDERED: INSULIN DETEMIR (LEVEMIR) 100 UNIT/ML SYR SQ SCH (21:00)
[2022-08-20 03:48] VITALS: TEMP 98.1
[2022-08-20 07:04] LABS: Glucose,Whole Blood 98 mg/dL (70-110)
[2022-08-20] MEDS: glipiZIDE 10 MG TAB PO SCH (07:04)
[2022-08-20] MEDS: LEVOTHYROXINE 50 MCG TAB PO SCH (07:04)
[2022-08-20] MEDS: INSULIN ASPART (NovoLOG) 100 UNIT/ML VIAL SQ SCH ×4 (07:04→12:23)
[2022-08-20] MEDS: SODIUM CHLORIDE 0.9% 1,000 ML IV SCH (07:05)
[2022-08-20] MEDS: FOLIC ACID 1 MG TAB PO SCH (08:25)
[2022-08-20] MEDS: METOPROLOL TARTRATE 50 MG TAB PO SCH (08:25)
[2022-08-20] MEDS: hydrALAZINE HCL 50 MG TAB PO SCH (08:25)
[2022-08-20] MEDS: APIXABAN 5 MG TAB PO SCH (08:25)
[2022-08-20 08:29] VITALS: RESP 16
[2022-08-20 09:05] LABS: Calcium 8.4 mg/dL (8.4-10.2); Potassium 4.5 mmol/L (3.5-5.1)
--- NOTE | 2022-08-20 09:20 | P.PN ---
Subjective Progress Note Date: 08/20/22 Principal diagnosis: Bilateral pulmonary embolism The patient was seen and examined today as a follow-up for bilateral pulmonary embolism. She is sitting up in the chair at this time. She has 2 L nasal cannula on with saturation of 95-96%. Apparently yesterday she was trialed without oxygen while ambulating and oxygen saturation fell to 83%. Patient denies any acute shortness of breath while sitting, no chest pain. She does state that she still gets a little short of breath while walking but she feels is partly as that she's been sitting and lying in bed for so long. No other acute changes through the night. She has been transitioned from heparin to Eliquis. Objective - Vital Signs Vital signs: Vital Signs Temp 98.1 F 08/20/22 03:45 Pulse 75 08/20/22 08:00 Resp 16 08/20/22 08:00 BP 128/65 08/20/22 08:00 Pulse Ox 94 L 08/20/22 08:00 FiO2 Intake & Output 08/19/22 08/20/22 08/20/22 18:59 06:59 18:59 Intake Total 360 240 358 Balance 360 240 358 Intake: Oral 360 240 358 Other: Voiding Method Toilet Toilet # Voids 1 2 - Exam General appearance: The patient is alert, oriented, appears in no acute distress. HET: Head is normocephalic and atraumatic. Pupils are equal and reactive. Neck: Supple without lymphadenopathy. Trachea midline. Obese. Heart: Regular. Lungs: Equal expansion, normal respiratory effort. Abdomen: Soft, nontender, nondistended. Extremities: Normal skin color and turgor. No cyanosis, rash, ulceration, clubbing, or edema. Radial and pedal pulses are 2/4 bilaterally. Neurological: No focal deficits. Alert and oriented 3. - Labs CBC & Chem 7: 08/18/22 04:19 08/20/22 08:05 Labs: Abnormal Lab Results - Last 24 Hours (Table) 08/18/22 08/19/22 08/19/22 Range/Units 04:19 07:35 11:48 BUN 34 H (7-17) mg/dL Creatinine 1.34 H (0.52-1.04) mg/dL Glucose 174 H (74-99) mg/dL POC Glucose (mg/dL) 374 H (70-110) mg/dL Hemoglobin A1c 8.3 H (0.0-6.0) % Calcium 8.3 L (8.4-10.2) mg/dL 08/19/22 08/19/22 08/20/22 Range/Units 17:01 20:08 08:05 BUN 31 H (7-17) mg/dL Creatinine 1.22 H (0.52-1.04) mg/dL Glucose 178 H (74-99) mg/dL POC Glucose (mg/dL) 118 H 153 H (70-110) mg/dL Hemoglobin A1c (0.0-6.0) % Calcium (8.4-10.2) mg/dL Assessment and Plan Assessment: 1. Bilateral pulmonary emboli, with no evidence of right heart strain per echocardiogram 2. History of hypertension 3. Obesity 4. Recent COVID-19 booster, 2 months ago Plan: 1. Continue Eliquis 10 mg BID (starter pack sent to pharmacy) 2. Echocardiogram results reviewed with Dr. Jackson who reported no right heart strain. Report not crossing over and computer system. 3. Venous duplex bilateral lower extremities negative for DVT 4. Incentive spirometer to bedside 5. Encourage ambulation 6. Recommend outpatient colonoscopy 7. Recommend follow-up with PCP next week for possible repeat echocardiogram Patient is cleared for discharge from vascular surgery. We will sign off at this time. The impression and plan of care has been dictated as directed. Dr. Hagen I performed a history and examination of this patient, discussed the same with the dictator. I agree with the dictator's note ,documented as a scribe. Any additional findings or plans will be noted.
[2022-08-20 12:09] VITALS: BP 137/55; PULSE 64
[2022-08-20 12:12] LABS: Glucose,Whole Blood 151 mg/dL (70-110)
--- NOTE | 2022-08-23 00:48 | P.DS ---
Providers Date of admission: 08/17/22 19:19 Attending physician: Kulwant Thakur Consults: 08/18/22 13:13 Consult Physician Stat Consulting Provider: Mario Lui Consult Reason/Comments: bilateral PE, large clot burden, possible right heart strain Do you want consulting provider notified?: Yes 08/18/22 13:18 Consult Physician Stat Consulting Provider: Yaw Hagen Consult Reason/Comments: bilateral PE with large clot burden, possible right heart strain Do you want consulting provider notified?: Yes Primary care physician: Hi Quezada MD Hospital Course: Final Diagnosis Acute bilateral lobar, sugmental and subsegmental pulmonary embolism. There is evidence of large clot burden and dilated main pulmonary artery found on CTA from [place]. Echo shows no evidence of right heart strain. Bilateral tree in bud opacities right greater than left possibly from an atypical pneumonia found on chest CT angiography. Follow up chest xray is negative acute cardiopulmonary disease. Acute hypoxic respiratory failure requiring oxygen via nasal cannula patient has been weaned to room air Acute kidney injury mostly prerenal, diurectics and metformin will be held at this time History hypothyroidism Peripheral neuropathy Hypertension Diabetes mellitus with hyperglycemia History of gout on Krystexxa infusions Never smoker Obesity Full Code Discharge Disposition Patient is stable for discharge home. She has been weaned to room air and tolerating activity. She will be discharge on eliquis 10 mg twice a day for 7 days and then 5 mg twice a day. Recommended to follow up with her primary care in 1 to 2 days. She is also recommended to follow up with her adult manager and also vascular services. Recommended to hold lasix, metformin, aldactone on discharge until follow up labs in 2 to 3 days secondary to elevated creatinine. She has been started on Januvia 25 mg daily. Hospital Course This is an 81 year old female, history of diabetes mellitus, hypertension, gout. She is maintained on Krystexxa infusions states she was going to the hospital for her 9th infusion out of a 6 month course of therapy. She has reported chronic aches and pains since being started on infusions although her joint pain and swelling has improved. She states she has had ongoing issues with shortness of breath for the last 6 months and when she came in for her infusion she underwent work up for the shortness of breath at [facility]. CT angiography of the chest was performed showing Bilateral lobar segmental and subsegmental pulmonary emboli and large clot burden and RV/LV ratio is 1. The main pulmonary artery is abnormally dilated. Bilateral tree in bud opacities right greater than left likely due to an atypical pneumonia. She was found to have bilateral pulmonary embolism transferred to this facility for further evaluation of right heart strain. At [place] creatine was found to be elevated at 1.7. She reports no increase in leg swelling, denies lower extremity pain, no pain with ambulation. She denies prior history of blood clots, no personal or family history of clotting disorders. Denies personal history of cancer, there is family history of pancreatic cancer and some type of abdominal/bowel cancer. She does not wear oxygen at home and she is a non smoker. Denies history of heart disease or heart failure. Denies recent illness, has not been infected with covid previously. Up to date on vaccinations, records show patient had influenza vaccine this year, and moderna booster in April of this year. Patient was admitted to the hospital and started on IV heparin with consult placed to vascular services. Venous doppler negative for DVT, bilaterally. Troponin negative. Echocardiogram completed showing ejection fraction of 55-60%, mild tricuspid and mild mitral regurgitation. There is a mildly dilated right ventricle with normal function. There is no evidence of right ventricular strain noted. There is normal pulmonary artery systolic press ure RVSP is 24 mmHg. Vascular surgery is recommended no intervention at this time, patient will be started on eliquis. Require close follow-up and echocardiogram outpatient. 08/20/2022 Patient is evaluated today sitting up in the chair. Vascular services has cleared patient for discharge and she has been started on eliquis. She denies shortness of breath and denies chest pain. She has been ambulating on room air and maintaining oxygen saturation of 95%. Lungs are clear today with improved aeration. S1 S2 auscultated. Alert x 3 and focal neurological exam. Creatinine today 1.22, BUN 31. Sodium 138, potassium 4.5. Blood glucose 150s. She is afebrile, heart rate 64, blood pressure 137/55, 95% room air. Educated on risk factor modification including increasing cardiac activity, weight loss, blood glucose control, and diet. Patient will need close follow up with primary care, vascular services, and her adult manager. Cleared for discharge home. Please see medication reconciliation for a list of current medication. Thank you for allowing us to participate in the care of this patient. The impression and plan of care has been dictated by Jaci Geronimo, Nurse Practitioner as directed. Dr. Ofe MD I have performed a history and physical examination and medical decision making of this patient, discussed the same with the dictator, and agree with the dictators assessment and plan as written, documented as a scribe. Based on total visit time, I have performed more than 50% of this visit. Patient Condition at Discharge: Stable Plan - Discharge Summary Discharge Rx Participant: No New Discharge Prescriptions: New Apixaban [Eliquis Starter Pack (for VTE)] 5 - 10 mg PO DIRECTED 30 Days #1 each sitaGLIPtin PHOSPHATE [Januvia] 25 mg PO DAILY #30 tab Continue diphenhydrAMINE [Benadryl] 25 mg PO PEÑA@2100 Folic Acid 1 mg PO DAILY hydrALAZINE HCL [Apresoline] 50 mg PO BID Metoprolol Tartrate [Lopressor] 50 mg PO BID Krystexxa Infusion 1 dose IV Q14D traMADol HCL 50 mg PO Q6H PRN PRN Reason: Pain Acetaminophen [Tylenol 8 Hour] 650 mg PO Q8H PRN PRN Reason: Pain Cyanocobalamin (Vitamin B-12) [Vitamin B-12] 1,000 mcg PO DAILY Colchicine [Mitigare] 0.6 mg PO DAILY metHOTREXate sodium [Methotrexate] 15 mg PO PEÑA Loperamide HCl [Imodium A-D] 2 mg PO QID PRN PRN Reason: Diarrhea glipiZIDE [Glucotrol] 20 mg PO BID Magnesium Oxide [Mag-Ox] 250 mg PO BID Levothyroxine Sodium [Synthroid] 50 mcg PO DAILY Discontinued Potassium Chloride [Klor-Con M20] 20 meq PO DAILY Furosemide [Lasix] 40 mg PO DAILY metFORMIN HCL 1,000 mg PO BID Spironolactone [Aldactone] 25 mg PO DAILY Diclofenac Sodium Gel [Voltaren Gel] 2 - 4 gm TOPICAL QID PRN PRN Reason: Pain Discharge Medication List Acetaminophen [Tylenol 8 Hour] 650 mg PO Q8H PRN 08/17/22 [History] Colchicine [Mitigare] 0.6 mg PO DAILY 08/17/22 [History] Cyanocobalamin (Vitamin B-12) [Vitamin B-12] 1,000 mcg PO DAILY 08/17/22 [History] Folic Acid 1 mg PO DAILY 08/17/22 [History] Krystexxa Infusion 1 dose IV Q14D 08/17/22 [History] Levothyroxine Sodium [Synthroid] 50 mcg PO DAILY 08/17/22 [History] Loperamide HCl [Imodium A-D] 2 mg PO QID PRN 08/17/22 [History] Magnesium Oxide [Mag-Ox] 250 mg PO BID 08/17/22 [History] Metoprolol Tartrate [Lopressor] 50 mg PO BID 08/17/22 [History] diphenhydrAMINE [Benadryl] 25 mg PO PEÑA@2100 08/17/22 [History] glipiZIDE [Glucotrol] 20 mg PO BID 08/17/22 [History] hydrALAZINE HCL [Apresoline] 50 mg PO BID 08/17/22 [History] metHOTREXate sodium [Methotrexate] 15 mg PO PEÑA 08/17/22 [History] traMADol HCL 50 mg PO Q6H PRN 08/17/22 [History] Apixaban [Eliquis Starter Pack (for VTE)] 5 - 10 mg PO DIRECTED 30 Days #1 each 08/19/22 [Rx] sitaGLIPtin PHOSPHATE [Januvia] 25 mg PO DAILY #30 tab 08/20/22 [Rx] Follow up Appointment(s)/Referral(s): Yaw Hagen DO [Doctor of Osteopathic Medicine] - 09/10/22 11:15 am Hi Quezada MD [Primary Care Provider] - 1-2 days Ambulatory/Diagnostic Orders: Basic Metabolic Panel [LAB.AMB] Time Frame: 3 Days, Location: None Selected Patient Instructions/Handouts: Apixaban (By mouth), Pulmonary Embolism (DC) Activity/Diet/Wound Care/Special Instructions: Patient needs follow up with her adult manager in 1 to 2 weeks Recommend to stay up to date on routine screenings including colonoscopy. Hold lasix, aldactone, and metformin for now Repeat labs in 2 to 3 days to monitor kidney function Januvia has been started for oral blood glucose control. Continue eliquis 10 mg twice a day for 6 more days than transition to 5 mg twice a day. Discharge Disposition: HOME SELF-CARE
--- NOTE | 2022-08-24 17:24 | CDI ---
Documentation Clarification Form Date: 08/24/2022 05:11:44 PM From: Debbie Loco Phone: Admit Date: 08/17/2022 07:19:00 PM Patient Name: Denise Burciaga Visit Number: [id number] Discharge Date: 08/20/2022 03:22:00 PM ATTENTION: The Clinical Documentation Specialists (CDI) and [facility] Coding Staff appreciate your assistance in clarifying documentation. Please respond to the clarification below the line at the bottom and electronically sign. The CDI & [facility] Coding staff will review the response and follow-up if needed. Please note: Queries are made part of the Legal Health Record. If you have any questions, please contact the author of this message via ITS. Dr. Kulwant Thakur Your patient has diagnostic/radiology results: The main pulmonary artery is abnormally dilated. Please clarify if there is an additional diagnosis and/or clinical significance related to this result. History/Risk Factors: 81yo F, acute PE, AHRF, BRANDIN, DMII w hypergly & neuropathy, hypothyroidism, HTN, Hx gout, Obesity Clinical indicators: Echo: Normal LV dimension and systolic function. EF 55-60%. Mildly with normal function. No evidence of dilated right ventricle strain noted. Normal pulmonary artery systolic pressure. RVSP is 24 mmHg. Overall normal intracardiac valves Treatment: She will be discharge on eliquis 10 mg twice a day for 7 days and then 5 mg twice a day. Recommended to follow up with her primary care in 1 to 2 days. She is also recommended to follow up with her black ash burner operator and also vascular services. Recommended to hold Lasix, metformin, aldactone on discharge until follow up labs in 2 to 3 days secondary to elevated creatinine. She has been started on Januvia 25 mg daily. Is there an additional diagnosis and/or clinical significance related to the above diagnostic/radiology result? 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
== END 2022-08-20 15:22 | disposition home or self-care (01) | DRG 175 ==
LOC: EC 18:50 → 3SCARD 19:19
PROVIDERS: ADMIT Internal Medicine; ATTEND Internal Medicine
DX: I26.99 Other pulmonary embolism without acute cor pulmonale (principal); J18.9 Pneumonia, unspecified organism; J96.01 Acute respiratory failure with hypoxia; N17.9 Acute kidney failure, unspecified; Z68.41 Body mass index [BMI] 40.0-44.9, adult; E11.42 Type 2 diabetes mellitus with diabetic polyneuropathy; I11.9 Hypertensive heart disease without heart failure; E03.9 Hypothyroidism, unspecified; E11.65 Type 2 diabetes mellitus with hyperglycemia; I08.1 Rheumatic disorders of both mitral and tricuspid valves; E66.9 Obesity, unspecified; M10.9 Gout, unspecified; Z79.899 Other long term (current) drug therapy; Z79.890 Hormone replacement therapy; Z79.84 Long term (current) use of oral hypoglycemic drugs
CPT/HCPCS: 71046; 80048; 83036; 83735; 84484; 85025; 85610; 85730; 93306; 93970; 96365; 99285